=== PATIENT | female | born 1970 ===

== ENCOUNTER 2017-05-14 08:23 | Emergency (ER) | payer OTHER ==
[~2017-05-14] VITALS: Ht 160 cm; Wt 90.7 kg
[2017-05-14] MEDS ORDERED: METFORMIN HYDRO25 GM (08:34)
[2017-05-14] MEDS ORDERED: COZAAR25 MG (08:34)
== END 2017-05-15 00:04 | disposition home or self-care (01) ==
LOC: ER 08:23
DX: K52.9 Noninfective gastroenteritis and colitis, unspecified (principal)

== ENCOUNTER → 2017-11-29 | Emergency (ER) | payer OTHER ==
[~2017-11-29] VITALS: Ht 160 cm; Wt 90.7 kg
[~2017-11-29] MED LIST: COZAAR25 MG; LOSARTAN-HCTZ1 EAC1; METFORMIN HYDRO25 GM
== END | disposition home or self-care (01) ==
LOC: ER 21:57
DX: T78.02XA Anaphylactic reaction due to shellfish (crustaceans), initial encounter (principal); R21 Rash and other nonspecific skin eruption

== ENCOUNTER 2024-09-01 05:27 | Day surgery (SDC) | payer OTHER ==
[2024-08-29 13:37] VITALS: BP 118/81
[~2024-09-01] VITALS: Ht 160 cm; Wt 77.1 kg
[~2024-09-01 05:27] MED LIST changes: +LIPITOR20 MG; +PROTONIX40 MG PO; +RYBELSUS14 MG PO
[2024-09-01] MEDS ORDERED: CEFTRIAXONE SODIUM 2,000 MG VIAL ONE (07:05)
[2024-09-01] MEDS ORDERED: DIBUCAINE 30 GM TUBE ONE (07:06)
[2024-09-01] MEDS ORDERED: METRONIDAZOLE/SODIUM CHLORIDE 500 MG/100 ML PIGGYBACK IV ONE (07:06)
[2024-09-01] MEDS ORDERED: BUPIVACAINE HCL/MPF 0.5% 30ML VIAL ONE (07:06)
[2024-09-01] MEDS ORDERED: BUPIVACAINE LIPOSOME/PF 266 MG/20 ML VIAL IJ ONE (07:07)
[2024-09-01] MEDS ORDERED: LIDOCAINE HCL 1%/EPINEPHRINE 20ML VIAL IJ ONE (07:07)
[2024-09-01] MEDS ORDERED: HEMOSTATIC MATRIX 1 KIT KIT TOP ONE (07:07)
[2024-09-01] MEDS ORDERED: POVIDONE-IODINE 118 ML BOTT TOP ONE (07:07)
[2024-09-01] MEDS ORDERED: TAMSULOSIN HCL 0.4 MG CAP PO ONE ×2 (09:00→09:44)
[2024-09-01] MEDS ORDERED: OXYCODONE HCL5 MG PO (09:06)
[2024-09-01] MEDS ORDERED: MORPHINE SULFATE 4 MG/ML VIAL IV ONE (11:35)
== END 2024-09-01 12:55 | disposition home or self-care (01) ==
LOC: CIR.AMB 05:27
PROVIDERS: ATTEND Surgery
DX: K64.2 Third degree hemorrhoids (principal); K64.4 Residual hemorrhoidal skin tags; K62.5 Hemorrhage of anus and rectum